=== PATIENT | female | born 1945 | race Caucasian/White ===

== ENCOUNTER → 2017-11-01 | Outpatient (CLI) | payer MEDICARE, OTHER ==
[~2017-11-01] MED LIST: ALE70 PO; ALLEGRA; ASCO-182 PO; ASP325 PO; ASPI-1471 PO; ASPI-715 PO; CALC200T27 PO; DOCU250C8 PO; ESC10 PO; ESCI5TAB3 PO; ESTR-25 PO; ESTR0.4513 PO; FOL1 PO; GABA-547 PO; GLUC-308 PO; GOLYTE PO; HYD200 PO; IOPAMIDOL 76% 50 ML INFUS BTL 50 ML ONE; IOPAMIDOL 76% 75 ML INFUS BTL 75 ML ONE; LACT1CAP9 PO; LOR5 PO; MAGN100T PO; MILK140C3 PO; MOME17SP9 NS; MON10 PO; NAPR-1043 PO; NASONEX; NS 0.9% 50 ML VIAL 50 ML ONE; OMEG-26 PO; OMEP-218 PO; PRE1 PO; PRE5 PO; RAN150 PO; SINGULAIR; TRAM-420 PO; UBID200C17 PO; VIT C; VIT E; VIT1CAPS34 PO; VITA150T2 PO; ZANTAC; ZOLP-350 PO; [UNRECOGNIZED DRUG - CODE] PO; [UNRECOGNIZED DRUG - CODE] PO; [UNRECOGNIZED DRUG - CODE] PO
--- NOTE | 2017-11-01 14:56 | RADIOLOGY IMAGING REPORT ---
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 A cute on chronic respiratory failure.. TECHNIQUE: Axial CT angiography of the chest with intravenous contrast. Coronal and sagittal reform ats. Coronal MIP reconstructions were also created for further evaluation and interpretation. One of the following dose optimization techniques was utilized in the performance of this exam: automated exposure control; adjustment of the mA and/or kV according to patient size; or use of iterative recon struction technique. Specific details can be referenced in the facility's radiology CT exam operatio nal policy. CONTRAST: 100 mL of IV Isovue-370. CT CHEST FINDINGS: CARDIAC: Mild coronary artery calcifications. Mild cardiomegaly. MEDIASTINUM/FARHANA: No significantly enlarged lymph nodes. VASCULATURE: There is cardiac pulsation artifact in the ascending aorta and main pulmonary arteries. The main pulmonary artery is mildly enlarged at 3.2 cm which can be seen with PA hypertension. There is no evidence of acute bone embolus to the proximal segmental level. Mild atherosclerotic thoracic aorta disease. CHEST WALL: No chest wall mass or axillary adenopathy. LUNGS/PLEURA: No pleural fluid. Bilateral upper lobe Mosaic attenuation which is probably due to reg ional areas of air trapping. Subsegmental bilateral upper lobe atelectasis and mild dependent atelect asis in the lower lobes. Peripheral reticular opacities noted on the previous are similar to previous . No gerardo consolidation. Patent central airways. BONES: First-degree degenerative anterolisthesis at T1-T2 about 3 mm. Moderate glenohumeral osteoart hritis bilaterally. No bony lesion or acute appearing fracture. LIMITED ABDOMEN: Unremarkable. OTHER: Negative. IMPRESSION: 1. There is no evidence of acute pulmonary embolus to the proximal segmental arterial level. 2. There is new mosaic attenuation in the upper lobes bilaterally with associated atelectasis probab ly related to regional air-trapping. No consolidation or edema. 3. Prominent main pulmonary artery raising the possibility of PA hypertension. 4. Mild coronary artery calcifications. Report Dictated By: Ori Adame at 11/01/2017 2:29 PM Report E-Signed By: Ori Adame at 11/01/2017 2:51 PM WSN:[id number]
== END ==
LOC: CT 06:49
PROVIDERS: ATTEND Internal Medicine Pulmonary Disease
DX: Z01.812 Encounter for preprocedural laboratory examination (principal); J98.11 Atelectasis; I25.10 Atherosclerotic heart disease of native coronary artery without angina pectoris
CPT/HCPCS: 36415; 71275; 82565; J7050; Q9967

== ENCOUNTER → 2017-12-23 | Outpatient (CLI) | payer MEDICARE, OTHER ==
[~2017-12-23] MED LIST changes: -IOPAMIDOL 76% 50 ML INFUS BTL 50 ML ONE; -IOPAMIDOL 76% 75 ML INFUS BTL 75 ML ONE; -NS 0.9% 50 ML VIAL 50 ML ONE
== END ==
LOC: RESP 04:10
PROVIDERS: ATTEND Internal Medicine Pulmonary Disease
DX: J98.4 Other disorders of lung (principal)
CPT/HCPCS: 94060; 94726; 94729

== ENCOUNTER → 2018-02-06 | Outpatient (CLI) | payer MEDICARE, OTHER ==
[2018-02-06 11:39] LABS: PLATELET COUNT, AUTOMATED 324 K/uL (150-450)
[2018-02-06 11:57] LABS: LDL CHOLESTEROL 88 mg/dl
== END ==
LOC: LAB 11:15
PROVIDERS: ATTEND Nurse Practitioner Family
DX: D64.9 Anemia, unspecified (principal); E83.52 Hypercalcemia; R09.02 Hypoxemia; R89.9 Unspecified abnormal finding in specimens from other organs, systems and tissues; E78.00 Pure hypercholesterolemia, unspecified; M06.9 Rheumatoid arthritis, unspecified; I49.3 Ventricular premature depolarization; R73.01 Impaired fasting glucose
CPT/HCPCS: 36415; 82040; 82247; 82310; 82374; 82435; 82465; 82565; 82947; 83036; 83718; 84075; 84132; 84155; 84295; 84443; 84450; 84460; 84478; 84520; 85025

== ENCOUNTER → 2018-05-21 | Outpatient (CLI) | payer MEDICARE, OTHER ==
[~2018-05-21] MED LIST changes: +ALBU8.5H IH; +ALLE10VI19; +ASCO1CAP7 PO; +CA C PO; +CHLO-120 PO; +FLUT1BLS3 IH; +GABA-549 PO; +METH25VI IJ
== END ==
LOC: LAB 09:29
PROVIDERS: ATTEND Otolaryngology
DX: R22.1 Localized swelling, mass and lump, neck (principal)
CPT/HCPCS: 36415; 82565

== ENCOUNTER → 2018-05-22 | Outpatient (CLI) | payer MEDICARE, OTHER | LOC: AUD 11:30 | PROVIDERS: ATTEND Otolaryngology | DX: H69.83 Other specified disorders of Eustachian tube, bilateral (principal) | CPT/HCPCS: 92552; 92567 ==

== ENCOUNTER → 2018-05-23 | Outpatient (CLI) | payer MEDICARE, OTHER ==
[~2018-05-23] MED LIST changes: +IOPAMIDOL 76% 100 ML INFUS BTL 100 ML ONE
--- NOTE | 2018-05-23 14:34 | RADIOLOGY IMAGING REPORT ---
FACILITY: [facility] PATIENT NAME: Robyn Oglesby : 1945 MR: [id number] V: [id number] EXAM DATE: ORDERING PHYSICIAN: APRIL GANGON TECHNOLOGIST: [place] [facility] [place]: Robyn Oglesby : 1945 Visit/Account:[id number] Date of Sevice: 05/23/2018 EXAMINATION: CT neck with IV contrast HISTORY: Palpable neck mass felt by dentist. TECHNIQUE: Axial soft tissue neck CT with IV contrast. Sagittal and coronal reformats. One of the following dose optimization techniques was utilized in the performance of this exam: Autom ated exposure control; adjustment of the mA and/or kV according to the patient's size; or use of an i terative reconstruction technique. Specific details can be referenced in the facility's radiology C T exam operational policy. CONTRAST: 75 mL of IV Isovue-370 COMPARISON: Chest CTA dated 11/01/2017. FINDINGS: Masses/lesions: None. Airway: Normal. Lymph nodes: Negative. Vessels: Calcified plaque at the origins of the bilateral internal carotid arteries with approximate ly 25% stenosis. Developmental venous anomaly in the right cerebellar hemisphere. Musculoskeletal / Body wall: Multilevel degenerative disc disease and facet hypertrophy and the cervi wili spine and upper thoracic spine. 7 mm of anterior listhesis of C3 over C4. 3 mm of retrolisthesi s of C4 over C5. 2 mm of retrolisthesis of C5 over C6. 3 mm of anterior listhesis of C7 over T1. 5 mm of anterior listhesis of T1 over T2. 2 mm of anterior listhesis of T2 over T3 and T3 over T4. Visualized orbits / brain / paranasal sinuses: Developmental venous anomaly in the right cerebellar h emisphere. Otherwise negative. Upper chest: Mosaic attenuation in the upper lobes is similar compared with the chest CTA dated 2017. IMPRESSION: 1. No suspicious mass or lymphadenopathy in the neck. 2. Multifocal calcified plaque in the arteries with approximately 25% stenosis at the origin of the internal carotid arteries. 3. Advanced multilevel degenerative disc disease and facet hypertrophy in the cervical spine and upp er thoracic spine with multiple alignment abnormalities. 4. Developmental venous anomaly in the right cerebellar hemisphere. Report Dictated By: Kai Miller MD at 05/23/2018 2:21 PM Report E-Signed By: Kai Miller MD at 05/23/2018 2:31 PM WSN:[email or web address]
== END ==
LOC: CT 02:00
PROVIDERS: ATTEND Otolaryngology
DX: I65.23 Occlusion and stenosis of bilateral carotid arteries (principal); M47.893 Other spondylosis, cervicothoracic region
CPT/HCPCS: 70491; Q9967

== ENCOUNTER → 2018-08-02 | Outpatient (CLI) | payer MEDICARE, OTHER ==
[~2018-08-02] MED LIST changes: -IOPAMIDOL 76% 100 ML INFUS BTL 100 ML ONE; +MILK THISTLE140 M1 PO; -MILK140C3 PO
[2018-08-02 09:51] LABS: LDL CHOLESTEROL 68 mg/dl
== END ==
LOC: LAB 08:57
PROVIDERS: ATTEND Nurse Practitioner Family
DX: E87.8 Other disorders of electrolyte and fluid balance, not elsewhere classified (principal); E78.00 Pure hypercholesterolemia, unspecified; R53.81 Other malaise; R73.01 Impaired fasting glucose
CPT/HCPCS: 36415; 82040; 82247; 82310; 82374; 82435; 82465; 82565; 82947; 83036; 83718; 84075; 84132; 84155; 84295; 84443; 84450; 84460; 84478; 84520; 85027

== ENCOUNTER → 2018-08-06 | Outpatient (CLI) | payer MEDICARE, OTHER ==
--- NOTE | 2018-08-06 14:45 | RADIOLOGY IMAGING REPORT ---
FACILITY: [facility] PATIENT NAME: Robyn Oglesby : 1945 MR: [id number] V: [id number] EXAM DATE: [id number] ORDERING PHYSICIAN: TIMA WARE TECHNOLOGIST: Location: [facility] [place] Patient: Robyn Oglesby : 1945 Visit/Account:[id number] Date of Sevice: 08/06/2018 Exam type: CHEST PA AND LAT History: Barking cough, hypoxemia, restrictive lung disease, increased oxygen use Comparison: April 02, 2016. Findings: Again noted is marked elevation of the left hemidiaphragm similar to the prior study. Chronic peribr onchial thickening is again noted bilaterally. There is no evidence of focal infiltrates, pleural ef fusions or pulmonary edema. The cardiac silhouette is normal in size. There is ectasia of the upper trachea that appears more advanced when compared to the prior study IMPRESSION: 1. Chronic elevation left hemidiaphragm Chronic peribronchial thickening although no evidence of acute appearing infiltrates There is ectasia of the upper trachea that appears more advanced when compared the prior study Report Dictated By: Charmaine Morgan MD at 08/06/2018 2:39 PM Report E-Signed By: Charmaine Morgan MD at 08/06/2018 2:42 PM WSN:[email or web address]
== END ==
LOC: RAD 13:56
PROVIDERS: ATTEND Nurse Practitioner Family
DX: J98.6 Disorders of diaphragm (principal); R09.02 Hypoxemia
CPT/HCPCS: 71046

== ENCOUNTER → 2018-11-17 | Outpatient (CLI) | payer MEDICARE, OTHER ==
[2018-11-17 12:27] LABS: LDL CHOLESTEROL 138 mg/dl
== END ==
LOC: LAB 11:59
PROVIDERS: ATTEND Nurse Practitioner Family
DX: E87.8 Other disorders of electrolyte and fluid balance, not elsewhere classified (principal); R53.81 Other malaise; E78.00 Pure hypercholesterolemia, unspecified; E55.9 Vitamin D deficiency, unspecified
CPT/HCPCS: 36415; 82040; 82247; 82306; 82310; 82374; 82435; 82465; 82565; 82607; 82947; 83718; 84075; 84132; 84155; 84295; 84443; 84450; 84460; 84478; 84520; 85027

== ENCOUNTER 2018-11-19 16:44 | Emergency (ER) | payer MEDICARE, OTHER ==
--- NOTE | 2018-11-19 16:51 | ER Report ---
History and Physical Time Seen By MD: 16:51 HPI/ROS CHIEF COMPLAINT: Right hip pain HISTORY OF PRESENT ILLNESS: 73-year-old female patient presents to emergency room with complaint of right hip pain. Patient states that today she squatted down to pick something up. She states when she did that she felt a sharp cramp in her right hip and fell backwards. Patient states she did not fall onto her hip at all. She states she does have pain to that hip. Patient does have a recent history of a right hip replacement. She denies any nausea, vomiting or diarrhea. Patient states that she had no trauma to the hip. Patient is unable to stand up and EMS was contacted. REVIEW OF SYSTEMS: Respiratory: No cough, no dyspnea. Cardiovascular: No chest pain, no palpitations. Gastrointestinal: No vomiting, no abdominal pain. Musculoskeletal: As noted above Allergies: Coded Allergies: pollen extracts (Unverified Allergy, Unknown, 04/15/18) [place] Uncoded Allergies: hayfever (Allergy, Unknown, UNKNOWN, 04/01/12) Home Meds Reported Medications Chlorpheniramine Maleate (CHLOR-TRIMETON) 4 Mg Tablet, 1 TAB PO PRN 04/15/18 Escitalopram Oxalate (LEXAPRO) 10 Mg Tab, 1 TAB PO QDAY, TAB 04/15/18 Gabapentin (GABAPENTIN) 300 Mg Capsule, 300 MG PO BID, CAPSULE 04/15/18 Ca Citrate/Mgox/Vit D3/B6/Min (CALCIUM CITRATE PLUS TABLET) 1 Each Tablet, 1 TAB PO QDAY 04/15/18 Methotrexate Sodium/Pf (METHOTREXATE 1 GRAM/40 ML VIAL) 25 Mg/1 Ml Vial, 20 MG IJ 1xweek, VIAL 04/15/18 Vitamin B Complex & Vit C No.4 (SUPER B COMPLEX) 150 Mg Tablet, 2 TAB PO DAILY 07/25/17 Tramadol Hcl (TRAMADOL HCL) 50 Mg Tablet, 1 TAB PO Q4H PRN for PAIN, TAB 07/25/17 Ascorbic Acid (VITAMIN C) 500 Mg Tablet, 1 TAB PO DAILY, TAB 07/25/17 Vit A/Vit C/Vit E/Zinc/Copper (PRESERVISION AREDS SOFTGEL) 1 Each Capsule, 2 CAP PO BID, CAPSULE 07/25/17 Omeprazole Magnesium (PRILOSEC OTC) 20 Mg Tablet.dr, 2 TAB PO QDAY, TAB 07/02/17 Estrogen,Con/M-Progest Acet (PREMPRO 0.3 MG-1.5 MG TABLET) 1 Each Tablet, 1 TAB PO 3XW 07/02/17 Aspirin (ASPIR 81) 81 Mg Tablet.dr, 1 TAB PO QDAY, TAB 07/01/17 Prednisone (Prednisone) 5 Mg Tab, 1 TAB PO DAILY 04/30/12 Mometasone Furoate (NASONEX) 17 Gm [place].pump, 2 SPRAY NS DAILY PRN for ALLERGY SYMPTOMS 2 sprays in each nostril daily 04/30/12 Montelukast Sodium (SINGULAIR (OR EQUIV)) 10 Mg Tab, 1 TAB PO DAILY 04/30/12 Naproxen Sodium (Aleve) 220 Mg Tablet, 2 TAB PO QDAY 04/29/12 Folic Acid (Folic Acid) 1 Mg Tab, 1 TAB PO QDAY 03/13/10 Discontinued Reported Medications Aller Xt-Tree Pollen-Melaleuca (Melaleuca) Unknown Strength Vial 04/15/18 Ascorbic Acid/Collagen Hydr (COLLAGEN PLUS VIT C CAPSULE) 1 Each Capsule, 1 CAP PO QDAY, CAPSULE 04/15/18 Albuterol Sulfate 90 Mcg/Act (PROAIR HFA 90 MCG/ACT) 8.5 Gm Hfa.aer.ad, 1-2 PUFF IH 3-4XD PRN for PRN, INHALER 04/15/18 Fluticasone/Vilanterol (Breo Ellipta 200-25 Mcg INH) 1 Each Blst.w.dev, 1 PUFF IH QDAY 04/15/18 Milk Thistle Fruit Extract (MILK THISTLE) 140 Mg Capsule, 1 CAP PO DAILY, CAPSULE 07/25/17 [place]-3/Dha/Epa/Fish Oil (FISH OIL 1,000 MG SOFTGEL) 1 Each Capsule, 1 CAP PO QDAY 04/29/12 Past Medical/Surgical History Patient has a past medical history of a frozen hemidiaphragm, pneumonia, reflux, frequent UTI, arthritis, back pain, alcohol use, depression. Patient has a surgical history of a right hip replacement, ankle replacement, cataract surgery. Patient has a family medical history of TIA. Reviewed Nurses Notes: Yes Hx Smoking: Yes (1-1.5 PPD FOR 25 YEARS) Smoking Status: Former Smoker Hx Substance Use Disorder: No Hx Alcohol Use: Yes Constitutional Vital Sign - Last 24 Hours 11/19/18 11/19/18 11/19/18 11/19/18 16:52 16:58 17:00 17:04 Temp 98.2 Pulse 83 80 Resp 16 14 B/P (MAP) 148/78 (101) 138/96 (110) Pulse Ox 90 96 O2 Delivery Nasal Cannula 11/19/18 11/19/18 11/19/18 11/19/18 17:14 17:23 17:24 17:25 Pulse 82 90 Resp 20 21 B/P (MAP) 145/77 (99) 134/78 (96) Pulse Ox 97 96 11/19/18 11/19/18 11/19/18 11/19/18 17:30 17:34 17:35 17:40 Pulse 82 Resp 16 B/P (MAP) 152/82 (105) 136/74 (94) 128/79 (95) Pulse Ox 97 11/19/18 11/19/18 11/19/18 11/19/18 17:44 17:49 18:00 18:19 Pulse 77 79 77 Resp 15 15 10 B/P (MAP) 129/75 (93) Pulse Ox 95 95 96 11/19/18 18:20 B/P (MAP) 118/64 (82) Physical Exam General Appearance: The patient is alert, has no immediate need for airway protection and no current signs of toxicity. Respiratory: Chest is non tender, lungs are clear to auscultation. Cardiac: regular rate and rhythm Musculoskeletal: Neck: Neck is supple and non tender. Extremities have full range of motion and are non tender. Patient has right hip tenderness, the right leg is obviously shorter than the left. Skin: No rashes or lesions. DIFFERENTIAL DIAGNOSIS: After history and physical exam differential diagnosis was considered for right hip dislocation, fracture. Medical Decision Making EKG/Imaging Imaging EXAMINATION: Pelvis radiograph single view HISTORY: Post reduction of right hip. COMPARISON: None. FINDINGS: A single AP supine view of the pelvis is obtained. Bones: No evidence of acute fracture. Joint spaces: Moderate joint space narrowing of the left hip. Right hip arth roplasty. Advanced disc degenerative changes in the lumbar spine. Hardware: Right hip arthroplasty. There appears to have been successful reduction of the dislocated femoral head component of the arthroplasty which now appears appropriately aligned with the acetabular cup component. Alignment: Normal. Soft tissues: Negative. IMPRESSION: There appears to have been successful reduction of the right hip arthroplasty dislocation on this single AP view. No evidence of acute fracture. Report Dictated By: Kevin Land MD at 11/19/2018 6:59 PM Report E-Signed By: Kevin Land MD at 11/19/2018 7:01 PM EXAMINATION: Right hip radiographs 2 views HISTORY: Hip pain, shortened right leg. COMPARISON: 03/13/2010. FINDINGS: AP and crosstable lateral views of the right hip are obtained. Bones: No evidence of acute fracture. Joint spaces: Moderate joint space narrowing of the left hip. Status post right hip arthroplasty. Advanced multilevel degenerative changes of the lumbar spine. There is left convex curvature of the lumbar spine. Hardware: The femoral head component of the right hip arthroplasty is dislocated superolaterally Soft tissues: Negative. IMPRESSION: The femoral head component of the right hip arthroplasty is dislocated superolaterally. No acute fracture is identified. Report Dictated By: Kevin Land MD at 11/19/2018 6:53 PM Report E-Signed By: Kevin Land MD at 11/19/2018 6:59 PM ED Course/Re-evaluation ED Course Patient was admitted to an exam room, history and physical were obtained. Differential diagnoses were considered. On examination patient has obvious shortening of the right leg. She has tenderness to the right hip. An x-ray was done of the right hip which shows a dislocation of her prosthesis. I discussed the findings with the patient. She did agree for conscious sedation. That was done as described below. We will get a successful reduction. Patient tolerated procedure well. We'll go ahead and discharge her home at this time. She is to follow-up with Dr. Self's Shelli tomorrow as scheduled. She is to avoid squatting down without hip. She is to continue with her hip precautions as instructed. Patient verbalized understanding and agreement with plan. Procedure: Procedural sedation. A pre-sedation evaluation was completed on the patient at 1715. Patient is an appropriate candidate for procedural sedation. The risks of the sedation were discussed with the patient. A time out was completed. The patient was sedated with 40 mg of propofol. The patient was monitored with continuous pulse oximetry and monitoring engineer. There were no complications and no significant hypoxemia. I remained at the bedside for the sedation. The total time I spent in the procedural sedation was 10 minutes. Conscious sedation was performed by Dr. Mcgrath Procedure: Dislocation reduction. The hip was reduced in the usual fashion without complications. Post reduction the patient's neurovascular exam is normal. Post reduction x-ray demonstrates reduction of the joint to the anatomic position. The procedure was performed by myself. Decision to Disposition Date: Nov 19, 2018 Decision to Disposition Time: 18:45 Depart Departure Latest Vital Signs Vital Signs Date Time Temp Pulse Resp B/P (MAP) Pulse Ox O2 Delivery O2 Flow Rate FiO2 11/19/18 18:20 118/64 (82) 11/19/18 18:19 77 10 96 11/19/18 16:52 98.2 Nasal Cannula Impression: Primary Impression: Hip dislocation, right Condition: Improved Disposition: HOME OR SELF-CARE Referrals: ASHER ACOSTA (PCP) Patient Instructions: Hip Dislocation (ED) Additional Instructions: Limit activity by pain. Increase fluid intake. Get plenty of rest. Don't bend in the right hip. Follow up with Dr. Dubose tomorrow as scheduled. Continue with your normal medications. Return to the ER if condition worsens. Problem Qualifiers Primary Impression: Hip dislocation, right Encounter type: initial encounter Qualified Codes: S73.004A - Unspecified dislocation of right hip, initial encounter YASMINE JEAN BAPTISTE Nov 19, 2018 16:51
[2018-11-19] MEDS ORDERED: PROPOFOL EMUL 10MG/ML 20 ML VL IVP ONE (16:55)
[2018-11-19] MEDS ORDERED: NS(*) 0.9% 1000 ML BAG 1,000 ML IV ONE (17:05)
[2018-11-19] MEDS ORDERED: fentaNYL CITR 100 MCG/2 ML AMP IVP ONE (17:15)
[2018-11-19 18:20] VITALS: BP 118/64
--- NOTE | 2018-11-19 19:02 | RADIOLOGY IMAGING REPORT ---
FACILITY: [facility] - [place] PATIENT NAME: Robyn Oglesby : 1945 MR: [id number] V: [id number] EXAM DATE: ORDERING PHYSICIAN: YASMINE JEAN BAPTISTE TECHNOLOGIST: Location: [facility] [place] Patient: Robyn Oglesby : 1945 Visit/Account:[id number] Date of Sevice: 11/19/2018 EXAMINATION: Right hip radiographs 2 views HISTORY: Hip pain, shortened right leg. COMPARISON: 03/13/2010. FINDINGS: AP and crosstable lateral views of the right hip are obtained. Bones: No evidence of acute fracture. Joint spaces: Moderate joint space narrowing of the left hip. Status post right hip arthroplasty. Ad vanced multilevel degenerative changes of the lumbar spine. There is left convex curvature of the lum bar spine. Hardware: The femoral head component of the right hip arthroplasty is dislocated superolaterally Soft tissues: Negative. IMPRESSION: The femoral head component of the right hip arthroplasty is dislocated superolaterally. No acute frac ture is identified. Report Dictated By: Kevin Land MD at 11/19/2018 6:53 PM Report E-Signed By: Kevin Land MD at 11/19/2018 6:59 PM WSN:[id number]
--- NOTE | 2018-11-19 19:05 | RADIOLOGY IMAGING REPORT ---
FACILITY: [facility] PATIENT NAME: Robyn Oglesby : 1945 MR: [id number] V: [id number] EXAM DATE: ORDERING PHYSICIAN: YASMINE JEAN BAPTISTE TECHNOLOGIST: [place] [facility] [place]: Robyn Oglesby : 1945 Visit/Account:[id number] Date of Sevice: 11/19/2018 EXAMINATION: Pelvis radiograph single view HISTORY: Post reduction of right hip. COMPARISON: None. FINDINGS: A single AP supine view of the pelvis is obtained. Bones: No evidence of acute fracture. Joint spaces: Moderate joint space narrowing of the left hip. Right hip arthroplasty. Advanced disc degenerative changes in the lumbar spine. Hardware: Right hip arthroplasty. There appears to have been successful reduction of the dislocated f emoral head component of the arthroplasty which now appears appropriately aligned with the acetabular cup component. Alignment: Normal. Soft tissues: Negative. IMPRESSION: There appears to have been successful reduction of the right hip arthroplasty dislocation on this sin gle AP view. No evidence of acute fracture. Report Dictated By: Kevin Land MD at 11/19/2018 6:59 PM Report E-Signed By: Kevin Land MD at 11/19/2018 7:01 PM WSN:[id number]
== END 2018-11-19 18:35 | disposition home or self-care (01) ==
LOC: ER 16:58
DX: S73.004A Unspecified dislocation of right hip, initial encounter (principal)
CPT/HCPCS: 27250; 27265; 72170; 73502; 96374; 99152; 99285; J2704; J3010; J7030; 99156

== ENCOUNTER → 2018-11-19 | Outpatient (CLI) | payer MEDICARE, OTHER | LOC: AMB 16:25 | PROVIDERS: ATTEND Nurse Practitioner | DX: M25.551 Pain in right hip (principal); M21.951 Unspecified acquired deformity of right thigh; W18.30XA Fall on same level, unspecified, initial encounter; Y92.000 Kitchen of unspecified non-institutional (private) residence as the place of occurrence of the external cause | CPT/HCPCS: A0425; A0427 ==

== ENCOUNTER → 2019-01-27 | Outpatient (CLI) | payer MEDICARE, OTHER ==
[~2019-01-27] MED LIST changes: +AZIT-1 PO; +CHOL500025 PO; +DOCU-442 PO; +LINA145C PO; +METH2.5T43 PO; +OMEP40CA48 PO; +POLY17PO25 PO; +PSYL575P5; +PUMP300C PO; +ROSU20TA5 PO; +ROSU5TAB8 PO; +UBID100C48 PO
[2019-01-27 15:57] LABS: PLATELET COUNT, AUTOMATED 368 K/uL (150-450)
--- NOTE | 2019-01-27 16:21 | RADIOLOGY IMAGING REPORT ---
FACILITY: [facility] [place] PATIENT NAME: Robyn Oglesby : 1945 MR: [id number] V: [id number] EXAM DATE: ORDERING PHYSICIAN: MARY KATE ARCE TECHNOLOGIST: [place] [facility] [place] Og[place] : 1945 Visit/Account:[id number] Date of Sevice: 01/27/2019 Exam type: CHEST PA LAT History: Abnormal lung sounds Comparison: August 06, 2018 Findings: Again noted is marked elevation of the left hemidiaphragm which is similar to the prior study. Chron ic peribronchial thickening also again noted bilaterally. There is mild blunting of the right costop hrenic angle with adjacent airspace consolidation which may represent a small amount of atelectasis a nd or infiltrate. There is no evidence of overt pulmonary edema. The cardiac silhouette is normal i n size. IMPRESSION: 1. Chronic peribronchial thickening again noted There is mild blunting the right costophrenic angle with adjacent airspace consolidation which may re present a small amount of atelectasis and or infiltrate Report Dictated By: Charmaine Morgan MD at 01/27/2019 3:27 PM Report E-Signed By: Charmaine Morgan MD at 01/27/2019 4:16 PM WSN:[email or web address]
--- NOTE | 2019-01-27 16:23 | RADIOLOGY IMAGING REPORT ---
FACILITY: [facility] [place] PATIENT NAME: Robyn Oglesby : 1945 MR: [id number] V: [id number] EXAM DATE: ORDERING PHYSICIAN: MARY KATE ARCE TECHNOLOGIST: Location: [facility] - [place] Patient: Robyn Oglesby : 1945 Visit/Account:[id number] Date of Sevice: 01/27/2019 DEXA Scan Clinical history: Long-term steroid use, abnormal lung sounds. Comparison: DEXA scan from to 1216. LUMBAR SPINE: The bone mineral density (BMD) measured from L1-L4 correlates with a Z-score of 4.5 and a T-score of 2.6 which is Normal as defined by the World Health Organization. The corresponding risk of fracture in the lumbar spine is Not increased compared with a young adult reference population. This value ames s decrease by 0.9 % since the prior study. More than 5% change is considered significant. HIP: Bone mineral density (BMD) measured in the LEFT total hip region correlates with a Z-score 1.3 and a T-score of -0.5 which is normal as defined by the World Health Organization. The corresponding risk of fracture in the hip is 1-2 t imes increased compared to a young adult reference population. This value has increased by 1.5 % sinc e the prior study. More than 5% change is considered significant. T score left femoral neck -0.4 Bone mineral density (BMD) measured in the Femoral Neck region measures 0.981 g/cm?. IMPRESSION: 1. Lumbar spine: Normal. There has been 0.9% decrease in the bone mineral density since the previou s exam. 2. Left Total Hip: Normal. There has been 1.5% increase in the bone mineral density since the previ ous exam. 3. Femoral Neck: Bone Mineral Density is 0.981 g/cm? The next DEXA scan of this patient should include the following sites: L1-L4 and the left hip. FRAX? WHO Fracture Risk Assessment Tool link: <http://www.shef.ac.uk/FRAX/tool.jsp?locationValue=9> PLEASE NOTE: 1) The World Health Organization defines low BMD as follows: T-score Normal > -1 Osteopenia < -1 and > -2.5 Osteoporosis < -2.5 without fractures Established osteoporosis < -2.5 with fractures 2) In general, you may wish to consider: Diagnosis Treatment Follow-up DEXA Normal BMD Prevention 2-3 years Osteopenia Prevention/therapy 1-2 years Osteoporosis Therapy Yearly 3) Fracture risk estimated from the T-score is more accurate for vertebral fractures (often spontane ous) than for hip fractures. Report Dictated By: Charmaine Morgan MD at 01/27/2019 4:17 PM Report E-Signed By: Charmaine Morgan MD at 01/27/2019 4:19 PM WSN:[id number]
== END ==
LOC: LAB 14:34
PROVIDERS: ATTEND Emergency Medicine
DX: R09.89 Other specified symptoms and signs involving the circulatory and respiratory systems (principal); R10.9 Unspecified abdominal pain; R53.83 Other fatigue; R73.03 Prediabetes; Z79.52 Long term (current) use of systemic steroids
CPT/HCPCS: 36415; 71046; 77080; 81001; 82040; 82247; 82310; 82374; 82435; 82565; 82947; 83036; 84075; 84132; 84155; 84295; 84450; 84460; 84520; 85025

== ENCOUNTER → 2019-02-11 | Outpatient (CLI) | payer MEDICARE, OTHER ==
[~2019-02-11] MED LIST changes: +FOLI-68 PO; +MONT10TA4 PO
[2019-02-11 10:54] LABS: PLATELET COUNT, AUTOMATED 287 K/uL (150-450)
--- NOTE | 2019-02-11 11:57 | RADIOLOGY IMAGING REPORT ---
FACILITY: [facility] PATIENT NAME: Robyn Oglesby : 1945 MR: [id number] V: [id number] EXAM DATE: ORDERING PHYSICIAN: MARY KATE ARCE TECHNOLOGIST: Location: [facility] [place] Patient: Robyn Oglesby : 1945 Visit/Account:[id number] Date of Sevice: 02/11/2019 Examination: CHEST PA LAT Comparison: 01/27/2019 and earlier. History: Pneumonia Findings: Cardiac and hilar contour is within normal limits and unchanged. Chronic interstitial thickening is essentially unchanged over multiple prior studies. No definite new or enlarging consolidation or peribronchial inflammation. There is a questionable 1 cm nodule in the left mid lung which has potentially developed since 2016. No pneumothorax, edema, or effusion. Chronic elevation of the left hemidiaphragm. No acute findings in the visualized upper thorax. Osseous structures are intact. IMPRESSION: 1. Chronic lung disease. 2. Left midlung questionable new 1 cm nodule. While this could be a small infectious/inflammatory foc us or potentially a region of scarring, a solid nodule cannot be excluded. Further characterization b y chest CT is recommended. 3. No findings of acute cardiopulmonary disease are otherwise identified. Report Dictated By: Bob Moncada MD at 02/11/2019 11:49 AM Report E-Signed By: Bob Moncada MD at 02/11/2019 11:53 AM WSN:[id number]
== END ==
LOC: LAB 10:40
PROVIDERS: ATTEND Emergency Medicine
DX: R91.1 Solitary pulmonary nodule (principal)
CPT/HCPCS: 36415; 71046; 85025; 86140

== ENCOUNTER → 2019-02-13 | Outpatient (CLI) | payer MEDICARE, OTHER ==
[~2019-02-13] MED LIST changes: +ONDA4TAB97 PO
== END ==
LOC: LAB 12:20
PROVIDERS: ATTEND Emergency Medicine
DX: Z01.812 Encounter for preprocedural laboratory examination (principal)
CPT/HCPCS: 36415; 82565

== ENCOUNTER 2019-02-14 09:21 | Emergency (ER) | payer MEDICARE, OTHER ==
[~2019-02-14 09:21] MED LIST changes: -ONDA4TAB97 PO
--- NOTE | 2019-02-14 09:34 | ER Report ---
History and Physical Time Seen By MD: 09:31 Hx. of Stated Complaint: bending over and fell over. had right hip replaced Sep 2018. dislocated hip from fall in Oct 2018. did same thing today- right hip deformity. right leg noticably shorter HPI/ROS CHIEF COMPLAINT: Right hip pain HISTORY OF PRESENT ILLNESS: Patient was walking downtown and bent over to pick something up and fell landing on her right side. She is now complaining of pain to her right hip and inability to ambulate. Patient had a total right pick replacement in 2017. In October 2018 she had a similar episode where she fell and dislocated the right hip. She was seen in the emergency department at that time and had procedural sedation and reduction of the hip joint at that time. She has had no problems since until today when she fell. REVIEW OF SYSTEMS: Respiratory: No cough, no dyspnea. Cardiovascular: No chest pain, no palpitations. Gastrointestinal: No vomiting, no abdominal pain. Musculoskeletal: Right hip pain Allergies: Coded Allergies: pollen extracts (Unverified Allergy, Unknown, 02/14/19) [place] Uncoded Allergies: hayfever (Allergy, Unknown, UNKNOWN, 04/01/12) Home Meds Active Scripts Linaclotide (LINZESS) 145 Mcg Capsule, 145 MCG PO DAILY, #90 CAPSULE 3 Refills Prov:MARY KATE ARCE MD 02/11/19 Methotrexate Sodium (METHOTREXATE) 2.5 Mg Tablet, 8 TAB PO QWEEK, #100 TAB 3 Refills Prov:MARY KATE ARCE MD 02/11/19 Estrogen,Con/M-Progest Acet (PREMPRO 0.3 MG-1.5 MG TABLET) 1 Each Tablet, 1 TAB PO 3XW, #40 TAB 3 Refills Prov:MARY KATE ARCE MD 02/11/19 Montelukast Sodium (MONTELUKAST SODIUM) 10 Mg Tablet, 1 TAB PO QDAY, #90 TAB 3 Refills Prov:MARY KATE ARCE MD 02/11/19 Folic Acid (FOLIC ACID) 1 Mg Tablet, 1 MG PO QDAY, #90 TAB 3 Refills Prov:MARY KATE ARCE MD 02/11/19 Rosuvastatin Calcium (Rosuvastatin Calcium) 20 Mg Tablet, 1 TAB PO DAILY, #90 TAB 3 Refills Prov:MARY KATE ARCE MD 02/04/19 Reported Medications Ubidecarenone (COQ-10) 100 Mg Capsule, 200 MG PO BID, CAPSULE 01/27/19 Cholecalciferol (Vitamin D3) (VITAMIN D3) 5,000 Unit Tablet, 5000 UNIT PO DAILY 01/27/19 Omeprazole (OMEPRAZOLE) 40 Mg Capsule.dr, 40 MG PO DAILY, CAP 01/27/19 Chlorpheniramine Maleate (CHLOR-TRIMETON) 4 Mg Tablet, 1 TAB PO PRN 04/15/18 Escitalopram Oxalate (LEXAPRO) 10 Mg Tab, 1 TAB PO QDAY, TAB 04/15/18 Ca Citrate/Mgox/Vit D3/B6/Min (CALCIUM CITRATE PLUS TABLET) 1 Each Tablet, 1 TAB PO QDAY 04/15/18 Vitamin B Complex & Vit C No.4 (SUPER B COMPLEX) 150 Mg Tablet, 2 TAB PO DAILY 07/25/17 Tramadol Hcl (TRAMADOL HCL) 50 Mg Tablet, 1 TAB PO Q4H PRN for PAIN, TAB 07/25/17 Ascorbic Acid (VITAMIN C) 500 Mg Tablet, 1 TAB PO DAILY, TAB 07/25/17 Vit A/Vit C/Vit E/Zinc/Copper (PRESERVISION AREDS SOFTGEL) 1 Each Capsule, 2 CAP PO BID, CAPSULE 07/25/17 Aspirin (ASPIR 81) 81 Mg Tablet.dr, 1 TAB PO QDAY, TAB 07/01/17 Prednisone (Prednisone) 5 Mg Tab, 1 TAB PO DAILY 04/30/12 Mometasone Furoate (NASONEX) 17 Gm [place].pump, 2 SPRAY NS DAILY PRN for ALLERGY SYMPTOMS 2 sprays in each nostril daily 04/30/12 Naproxen Sodium (Aleve) 220 Mg Tablet, 1 TAB PO BID 04/29/12 Discontinued Reported Medications Pumpkin Seed Extract/Soy Germ (Azo Bladder Control Capsule) 300 Mg Capsule, 1 CAP PO DAILY 01/27/19 Discontinued Scripts Azithromycin (ZITHROMAX) 250 Mg Tablet, 2 TAB PO ONCE, #6 TAB Take 2 tabs now and then 1 daily Prov:MARY KATE ARCE MD 01/27/19 Past Medical/Surgical History Patient has a past medical history of a frozen hemidiaphragm, pneumonia, reflux, frequent UTI, arthritis, back pain, alcohol use, depression. Patient has a surgical history of a right hip replacement, ankle replacement, c ataract surgery. Hx Smoking: Yes (1-1.5 PPD FOR 25 YEARS) Smoking Status: Former Smoker Exposure to Second Hand Smoke?: Yes ( smoked) Hx Substance Use Disorder: No Hx Alcohol Use: Yes Constitutional Vital Sign - Last 24 Hours 02/14/19 02/14/19 02/14/19 02/14/19 09:26 09:30 09:40 10:00 Temp 97.9 Pulse 80 82 74 Resp 16 18 B/P (MAP) 150/78 Pulse Ox 95 97 98 O2 Delivery Nasal Cannula O2 Flow Rate 3.0 02/14/19 02/14/19 02/14/19 02/14/19 10:10 10:15 10:18 10:30 Pulse 71 B/P (MAP) 136/67 (90) 131/119 (123) 131/96 (108) 149/77 (101) Pulse Ox 91 02/14/19 02/14/19 02/14/19 02/14/19 10:35 10:40 10:45 10:48 B/P (MAP) 138/82 (100) 131/72 (91) 193/121 (145) 179/93 (121) 02/14/19 02/14/19 02/14/19 10:50 10:55 11:00 Pulse 71 B/P (MAP) 167/85 (112) 152/79 (103) Pulse Ox 100 Physical Exam General Appearance: The patient is alert, has no immediate need for airway protection and no current signs of toxicity. Eyes: Pupils equal and round no injection. Respiratory: Chest is non tender, lungs are clear to auscultation. Cardiac: regular rate and rhythm Gastrointestinal: Abdomen is soft and non tender, no masses, bowel sounds normal. Musculoskeletal: Neck: Neck is supple and non tender. Extremity: Examination of the right lower extremity reveals deformity in terms of shortening. Patient is sitting at a 90 angle which helps with discomfort. Pulses intact to distal foot dorsalis pedis. Medical Decision Making EKG/Imaging Imaging FACILITY: [facility] PATIENT NAME: Robyn Oglesby : 1945 MR: [id number] V: [id number] EXAM DATE: ORDERING PHYSICIAN: SIDNEY LYNN TECHNOLOGIST: Location: [facility] - [place] Patient: Robyn Oglesby : 1945 Visit/Account:[id number] Date of Sevice: 02/14/2019 PELVIS Indication: r hip pain Comparison: Pelvis radiograph 11/19/2018 Findings: Posterior dislocation of the right hip arthroplasty is seen. The acetabular component is in normal position. There is no evidence of fracture. IMPRESSION: Right total hip arthroplasty, with changes from posterior right hip dislocation. Report Dictated By: Dylan Kerr at 02/14/2019 10:32 AM Report E-Signed By: Dylan Kerr at 02/14/2019 10:33 AM WSN:[id number] ED Course/Re-evaluation ED Course 02/14/2019 9:32:23 am she with likely dislocation of right hip prosthesis. W e'll obtain x-rays at this time place IV and anticipate patient will require procedural sedation. 02/14/2019 10:32:26 am see procedure sedation for initial reduction attempt. Procedure: Dislocation reduction. Attempt was made to reduced the right hip using both the "Capt. Nolasco's technique" as well as traction countertraction without success. Patient received a total of 50 mg of ketamine and propofol for this attempts is currently covering from procedural sedation and is aware that we were unable to reduce the hip. I have spoke with Dr. Ackerman who is on-call for orthopedics and he will come into the emergency department to attempt a reduction. 02/14/2019 10:58:58 am please see 2nd procedural sedation nursing record for times of medications. The patient received a total between both attempts of 95 mg of propofol and 135 mg of ketamine. Procedure: Dislocation reduction: The right hip was reduced in the usual fashion without complications. Post reduction the patient's neurovascular exam is normal. Post reduction x-ray demonstrates reduction of the joint to the anatomic position. The procedure was performed by DR Ackerman; I performed the procedural sedation. Post reduction the patient had a period of apnea that was immediately observed by the CO2 monitor. Rescue breathing was done with a bag valve mask and addition of nasal pharyngeal airway. The patient required BVM for approximately 3 minutes and desaturated initially to the mid 75%, but recovered quickly with rescue breathing. 02/14/2019 11:14:04 am and continuing to recover from procedural sedation without complaints. 02/14/2019 11:53:14 am she has returned to baseline mental status is asking for crackers and water which she has tolerated. Discharge home with prescription for Zofran and recommendation to call Dr. Dubose on February 16. Decision to Disposition Date: Feb 14, 2019 Decision to Disposition Time: 11:55 Depart Departure Latest Vital Signs Vital Signs Date Time Temp Pulse Resp B/P (MAP) Pulse Ox O2 Delivery O2 Flow Rate FiO2 02/14/19 11:00 71 100 02/14/19 10:55 152/79 (103) 02/14/19 10:00 18 02/14/19 09:40 3.0 02/14/19 09:26 97.9 Nasal Cannula Impression: Primary Impression: Hip dislocation, right Condition: Improved Disposition: HOME OR SELF-CARE Referrals: MARY KATE ARCE MD (PCP) New Scripts Ondansetron Hcl (ZOFRAN) 4 Mg Tablet 4 MG PO Q8H for Nausea, #15 TAB 0 Refills Prov: SIDNEY LYNN MD 02/14/19 Patient Instructions: Hip Dislocation (ED) Additional Instructions: bed rest through the weekend; avoid bending over. Call Dr Dubose on Saturday, let him know you had another hip dislocation and needed reduction in the emergency department and what yoou should do activity lara and when your next follow up appointment should be Problem Qualifiers Primary Impression: Hip dislocation, right Encounter type: initial encounter Qualified Codes: S73.004A - Unspecified dislocation of right hip, initial encounter SIDNEY LYNN MD Feb 14, 2019 09:34
[2019-02-14] MEDS: KETAMINE HCL 500 MG/5 ML VIAL IVP ONE ×2 (09:50→10:58)
[2019-02-14] MEDS ORDERED: ONDANSETRON 4 MG/2 ML VIAL IVP ONE ×2 (10:05→11:05)
--- NOTE | 2019-02-14 10:37 | RADIOLOGY IMAGING REPORT ---
FACILITY: [facility] - [place] PATIENT NAME: Robyn Oglesby : 1945 MR: [id number] V: [id number] EXAM DATE: ORDERING PHYSICIAN: SIDNEY LYNN TECHNOLOGIST: Location: [facility] Patient: Robyn Oglesby : 1945 Visit/Account:[id number] Date of Sevice: 02/14/2019 PELVIS Indication: r hip pain Comparison: Pelvis radiograph 11/19/2018 Findings: Posterior dislocation of the right hip arthroplasty is seen. The acetabular component is in normal position. There is no evidence of fracture. IMPRESSION: Right total hip arthroplasty, with changes from posterior right hip dislocation. Report Dictated By: Dylan Kerr at 02/14/2019 10:32 AM Report E-Signed By: Dylan Kerr at 02/14/2019 10:33 AM WSN:[id number]
[2019-02-14] MEDS ORDERED: LORazepam 2 MG/ML VIAL IVP ONE (10:55)
[2019-02-14] MEDS: PROPOFOL EMUL 10MG/ML 20 ML VL IVP ONE ×2 (10:57→11:16)
[2019-02-14] MEDS ORDERED: ONDANSETRON 4 MG/2 ML VIAL ONE (11:05)
--- NOTE | 2019-02-14 11:54 | RADIOLOGY IMAGING REPORT ---
FACILITY: [facility] PATIENT NAME: Robyn Oglesby : 1945 MR: [id number] V: [id number] EXAM DATE: ORDERING PHYSICIAN: SIDNEY LYNN TECHNOLOGIST: [place] [facility] [place] Patient: Robyn Oglesby : 1945 Visit/Account:[id number] Date of Sevice: 02/14/2019 PELVIS Indication: post reduction Comparison: Pelvis radiograph 02/14/2019 at 9:35 AM. Findings: Previously seen dislocation right hip has now reduced. Alignment is normal. IMPRESSION: Post reduction image right total hip arthroplasty. Alignment is now normal. Report Dictated By: Dylan Kerr at 02/14/2019 11:50 AM Report E-Signed By: Dylan Kerr at 02/14/2019 11:51 AM WSN:[id number]
[2019-02-14] MEDS ORDERED: ONDANSETRON 4 MG ODT TH SL ONE (12:00)
[2019-02-14] MEDS ORDERED: ONDA4TAB97 PO (12:03)
[2019-02-14 12:05] VITALS: BP 133/74
--- NOTE | 2019-02-16 07:52 | CONSULTATION ---
EVENT DATE: February 14, 2019 CHIEF COMPLAINT Right hip dislocation. HISTORY OF PRESENT ILLNESS This patient is a 73-year old female who had a total hip done down in [place] and subsequently had one dislocation and second dislocation and the emergency department staff was unable to get it in so they called in me for further evaluation and to potentially put the hip back. PAST MEDICAL HISTORY Otherwise unchanged from the last visit but she does have some issues with hypertension but she denies any other major medical problems. MEDICATIONS Please see the medicine reconciliation list. ALLERGIES Patient denies allergies. SOCIAL HISTORY Patient is accompanied by a friend and a family member but she denies any major smoking or drinking associated with this and lives in the community. REVIEW OF SYSTEMS The patient does have pain in the right leg and some irritation with sitting up but she denies any other orthopedic review of systems. PHYSICAL EXAMINATION GENERAL: Sitting in the hospital bed in the emergency department. Answers all questions appropriately. She is sitting up a little bit. She does have a shortened and externally rotated right leg and she says that she does have most of her pain in this area with any type of general movement but she is able to wiggle the toes and has light touch sensation. HEENT: Normocephalic. Extraocular movements are intact. NECK: Supple. Trachea is midline. LUNGS: Chest rises and falls symmetrically and she has no labored breathing or audible wheezing. LABORATORY AND RADIOLOGY X-rays include a couple of views of the pelvis which show a superior and posterior dislocation. ASSESSMENT AND PLAN This patient is a 73-year old female with a right total hip arthroplasty, which has subsequently dislocated. This is her second dislocation so we are going to try one last attempt to put it back under full sedation so, therefore, after the emergency department gave her full sedation I was able to put it back into place with full reduction maneuver with the knee bent and the leg flexed to about 70 degrees. I was able to pull it in a distal traction direction as well as in a forward anterior traction direction and get it to pop back in. Post reduction x-rays then confirmed that it was in place. The patient will follow up with either me or her physician down in [place] as this is a subsequent second dislocation so there are concerns over this. We will see her back at that point. TRAVIS
== END 2019-02-14 12:13 | disposition home or self-care (01) ==
LOC: ER 09:23
DX: S73.004A Unspecified dislocation of right hip, initial encounter (principal)
CPT/HCPCS: 27265; 72170; 96374; 96375; 96376; 99285; J2405; J2704; Q0162; S0119

== ENCOUNTER → 2019-02-14 | Outpatient (CLI) | payer MEDICARE, OTHER | LOC: AMB 09:02 | PROVIDERS: ATTEND Nurse Practitioner | DX: M25.551 Pain in right hip (principal); M21.951 Unspecified acquired deformity of right thigh; W18.30XA Fall on same level, unspecified, initial encounter | CPT/HCPCS: A0425; A0427 ==

== ENCOUNTER 2019-02-26 13:55 | Outpatient (RCR) | payer MEDICARE, OTHER ==
--- NOTE | 2019-02-26 11:26 | RADIOLOGY IMAGING REPORT ---
FACILITY: [facility] - [place] PATIENT NAME: Robyn Oglesby : 1945 MR: [id number] V: [id number] EXAM DATE: ORDERING PHYSICIAN: MARY KATE ARCE TECHNOLOGIST: Location: [facility] - [place] Patient: Robyn Oglesby : 1945 Visit/Account:[id number] Date of Sevice: 02/26/2019 CT CHEST W & W/O CON HISTORY: lung nodule One of the following dose optimization techniques was utilized in the performance of this exam: Autom ated exposure control; adjustment of the mA and/or kV according to the patient's size; or use of an i terative reconstruction technique. Specific details can be referenced in the facility's radiology C T exam operational policy. Additional Pertinent history: Chest x-ray from 02/11/2019 indicated questionable 1 cm nodule in the le ft midlung field TECHNIQUE: Spiral scan was obtained through the chest without contrast from lung apex to upper abdomen COMPARISON STUDIES: Comparison made to a CT scan from 11/01/2017 FINDINGS: Lungs / pleura: There are coarse interstitial reticular and interlobular septal thickening changes co mpatible with chronic lung change. No infiltrate consolidation or mass lesion noted. Specifically t here is no mass lesion noted in the left lung. Asymmetric elevation of the left hemidiaphragm is see n with mild adjacent atelectasis in the posterior inferior aspect of the left lung. Mediastinum / whitney: negative Heart / pericardium: Coronary artery calcifications noted. Vessels: negative Musculoskeletal / Body wall: Vertebral bodies well-maintained. No acute compression deformities or f ractures. No disc DJD of any significance. Lymph node assessment: negative Lower neck: No pathologic lymphadenopathy. Upper abdomen: negative IMPRESSION: 1. Stable CT scan of the chest demonstrating no left lung lesion. Report Dictated By: Jase Madrid MD at 02/26/2019 11:12 AM Report E-Signed By: Jase Madrid MD at 02/26/2019 11:22 AM WSN:[id number]
[~2019-02-26 13:55] MED LIST changes: +IOPAMIDOL 76% 150 ML INFUS BTL 150 ML ONE
--- NOTE | 2019-02-26 15:15 | RADIOLOGY IMAGING REPORT ---
FACILITY: [facility] PATIENT NAME: Robyn Oglesby : 1945 MR: [id number] V: [id number] EXAM DATE: ORDERING PHYSICIAN: DENZEL SAL TECHNOLOGIST: Location: [facility] - [place] Patient: Robyn Oglesby : 1945 Visit/Account:[id number] Date of Sevice: 02/26/2019 CT right shoulder Indication: Glenoid erosion. Comparison: CT of the chest from earlier on 02/26/2019 Technique: Axial CT images were obtained through the right shoulder. Reformatted coronal and sagittal images were reviewed. One of the following dose optimization techniques was utilized in the performance of this exam: auto mated exposure control; adjustment of the mA and/or kV according to the patient's size; or use of an iterative reconstruction technique. Specific details can be referenced in the facility's radiology C T exam operational policy. Findings: There are severe osteoarthritic changes of the glenohumeral joint. Prominent cystic changes at the superior right humeral head also likely degenerative in nature. Moderate marginal osteophytes of the inferior margin glenohumeral joint noted. There are moderate osteophytic changes of the acromioclavicular joint. 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 There is no lobar consolidation identified. Subtle air bubbles along the inferior posterior margin of the clavicle may relate to vacuum phenomena possibly tracking from the sternoclavicular joint. Nonspecific heterogeneous appearance of the marrow of the proximal right humeral head and proximal ri ght humeral shaft. IMPRESSION: 1. Severe osteoarthritic changes glenohumeral joint. 2. No acute fracture-dislocation. 3. Chronic pleural parenchymal changes of the right lung field. Report Dictated By: Mark Shah MD at 02/26/2019 2:51 PM Report E-Signed By: Mark Shah MD at 02/26/2019 3:10 PM WSN:[id number]
--- NOTE | 2019-03-02 14:40 | RADIOLOGY IMAGING REPORT ---
FACILITY: [facility] PATIENT NAME: Robyn Oglesby : 1945 MR: [id number] V: [id number] EXAM DATE: ORDERING PHYSICIAN: DENZEL SAL TECHNOLOGIST: Location: [facility] - [place] Patient: Robyn Oglesby : 1945 Visit/Account:[id number] Date of Sevice: 03/02/2019 MRI right shoulder without contrast Indication: Shoulder pain. Evaluate for possible rotator cuff tear. Comparison: CT scan of the shoulder 02/26/2019 is reviewed. Technique: Multiplanar, multisequence MRI examination is performed of the right shoulder without cont rast. FINDINGS: There is a type 1 acromion. There are mild changes of acromioclavicular joint osteoarthritis. There i s severe glenohumeral joint osteoarthritis identified. There is marked loss of glenoid bone stock to the base of the coracoid. Diffuse, severe cartilage denudation involves the glenoid and humeral head. Subchondral edema-like signal and subchondral cyst formation is present. There is an intermediate landy int effusion. This appears complex with either debris and/or nodular synovitis. The marrow pattern of the right humerus is abnormal. This begins in the region of the surgical neck a nd extends to involve the visualized shaft. The normal marrow has been replaced with lobulated bright T2 signal. This had a heterogeneous appearance of soft tissue attenuation on the recent CT scan. No bone destruction. There is no extension into the soft tissues. There is no surrounding edema. 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 Examination of the rotator cuff demonstrates supraspinatus insertional tendinopathy which appears mil d to moderate in severity and most pronounced at the anterior insertion. In this location, there is l ow-grade undersurface tearing. No full-thickness extension. Infraspinatus insertion is intact. There is subscapularis insertional tendinopathy seen which is mild in severity. No evidence of tear. There is felt to be intra-articular rupture of the long head biceps tendon. The tendon is retracted into th e rotator interval. No intact glenoid insertion is seen. There is a small amount of fluid within the subacromial-subdeltoid bursa. There is mild supraspinatus and infraspinatus muscle atrophy. IMPRESSION: 1. Intra-articular rupture of the right shoulder long head biceps tendon which is retracted into the rotator interval. 2. Supraspinatus insertional tendinopathy with low-grade undersurface insertional tearing at the ante rior insertion. No full-thickness rotator cuff tear. 3. Severe glenohumeral joint osteoarthritis with marked loss of glenoid bone stock and with a complex appearing joint effusion which may reflect debris and/or superimposed nodular synovitis. 4. 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 5. Trace subacromial-subdeltoid bursitis. Report Dictated By: Mario Arce at 03/02/2019 2:20 PM Report E-Signed By: Mario Arce at 03/02/2019 2:36 PM WSN:[id number]
== END 2019-03-02 18:00 | disposition home or self-care (01) ==
LOC: EDSTATUS 13:55 → CT 13:55
PROVIDERS: ATTEND Family Medicine Sports Medicine
DX: S46.111A Strain of muscle, fascia and tendon of long head of biceps, right arm, initial encounter (principal); M75.81 Other shoulder lesions, right shoulder; M19.011 Primary osteoarthritis, right shoulder
CPT/HCPCS: 73200; 73221; Q9967

== ENCOUNTER → 2019-02-26 | Outpatient (CLI) | payer MEDICARE, OTHER ==
[~2019-02-26] MED LIST changes: +ONDA4TAB97 PO
== END ==
LOC: CT 01:27
PROVIDERS: ATTEND Emergency Medicine
DX: R91.1 Solitary pulmonary nodule (principal)
CPT/HCPCS: 71270